=== PATIENT | female | born 1950 | race Caucasian/White ===

== ENCOUNTER 2017-11-11 17:21 | Emergency (ER) | payer BC, MEDICARE ==
[2017-11-11] MEDS ORDERED: HYDROCODONE/APAP 7.5/325MG TABLET PO ONE (17:25)
--- NOTE | 2017-11-11 17:30 | Emergency Department Record ---
History of Present Illness - General Chief complaint: Extremity Problem Stated complaint: WRIST INJURY Time Seen by Provider: 11/11/17 17:25 Source: Patient, Family Mode of Arrival: Ambulatory Limitations: No limitations - History of Present Illness Initial comments: 67 yo female presents after a fall in her living room. She was on a swivel chair and lost her balance landing on the left wrist. She has left radial side pain and swelling. No other injuries. She believes she broke that wrist in the distant past. No numbness or tingling. No weakness. She can move it but with some pain. MD Complaint: Extremity pain -: Minutes(s) (15) Location: Left History of Same: Yes -: Yes Arthralgia Radiation: Distal Quality: Aching Consistency: Constant Improves with: Immobilization Worsens with: Palpation, Weight bearing Associated Symptoms: Denies other symptoms - Related Data Home Medications Medication Instructions Recorded Confirmed Last Taken Ergocalciferol (Vitamin D2) 50,000 unit PO WEEKLY 11/11/17 11/11/17 1 Week Ago [Vitamin D2] ~11/04/17 Previous Rx's Medication Instructions Recorded Hydrocodone/Acetaminophen [[place] 1 each PO Q8H #15 tablet 11/11/17 5-325 Tablet] Allergies Allergy/AdvReac Type Severity Reaction Status Date / Time morphine Allergy BEHAVIORAL Verified 11/11/17 17:30 CHANGES Review of Systems Constitutional: Denies: Chills, Fever, Weakness Eyes: Denies: Eye discharge ENT: Denies: Congestion, Throat pain Respiratory: Denies: Cough Cardiovascular: Denies: Chest pain, Syncope Endocrine: Denies: Fatigue Gastrointestinal: Denies: Abdominal pain, Diarrhea, Nausea, Vomiting Genitourinary: Denies: Dysuria Musculoskeletal: Reports: As per HPI, Arthralgia, Joint swelling, Myalgia. Denies: Back pain, Neck pain Skin: Reports: Bruising. Denies: Change in color, Rash Neurological: Denies: Confusion, Headache, Numbness, Tingling, Weakness Psychiatric: Denies: Anxiety Hematological/Lymphatic: Denies: Easy bleeding, Easy bruising, Swollen glands Physical Exam - General General Appearance: Alert, Oriented x3, Cooperative, No acute distress Limitations: No limitations - Head Head exam: Atraumatic, Normocephalic, Normal inspection - Eye Eye exam: Normal appearance, PERRL. negative: Conjunctival injection, Periorbital swelling, Scleral icterus - ENT ENT exam: Normal exam Ear exam: Normal external inspection Nasal Exam: Normal inspection Mouth exam: Normal external inspection - Neck Neck exam: Normal inspection, Full ROM. negative: Tenderness - Respiratory Respiratory exam: Normal lung sounds bilaterally. negative: Respiratory distress - Cardiovascular Cardiovascular Exam: Regular rate, Normal rhythm, Normal heart sounds Peripheral Pulses: 2+: Radial (L) - Rectal Rectal exam: Deferred - exam: Deferred - Extremities Extremities exam: Joint swelling, Normal capillary refill, Tenderness. negative : Normal inspection, Full ROM Image of Hand: 1 - tenderness and swelling, skin intact, bruising, sensation intact - Back Back exam: Reports: Full ROM. Denies: CVA tenderness (R), CVA tenderness (L), Tenderness, Vertebral tenderness - Neurological Neurological exam: Alert, Normal gait, Oriented X3, Reflexes normal - Psychiatric Psychiatric exam: Normal affect, Normal mood - Skin Skin exam: Dry, Intact, Normal color, Warm Course - Reevaluation(s) Reevaluation #1: XR ordered of the left wrist 11/11/17 17:29 11/11/17 17:50 The XR was reviewed Possible distal tip of ulna fracture Questionable compression distal radius No displaced fracture or dislocation Degenerative changes noted 11/11/17 18:05 11/11/17 18:05 Disposition Disposition: Discharge Clinical Impression: Contusion of wrist, left Qualifiers: Encounter type: initial encounter Qualified Code(s): S60.212A - Contusion of left wrist, initial encounter Disposition: Home, Self-Care Condition: (1) Good Instructions: Wrist Sprain (ED) Additional Instructions: Use the splint for support and comfort Ice and elevate to minimize swelling Expect increased bruising over the next week Return if uncontrolled pain, any new concerns Call our doctor for close follow up in the next one week Prescriptions: Hydrocodone/Acetaminophen [[place] 5-325 Tablet] 1 each PO Q8H #15 tablet Forms: Patient Portal Access Time of Disposition: 17:53 Quality - Quality Measures Quality Measures: N/A - Blood Pressure Screening Does Patient Have Any of the Following: No Blood Pressure Classification: Pre-Hypertensive BP Reading Systolic Measurement: 139 Diastolic Measurement: 73 Screening for High Blood Pressure: < Pre-Hypertensive BP, F/U Documented > [ G8950] Pre-Hypertensive Follow-up Interventions: Referral to alternative/primary care provider.
--- NOTE | 2017-11-12 22:19 | RADIOLOGY REPORT ---
EXAM: WRIST, LEFT 3 VIEWS HISTORY: LEFT WRIST PAIN AFTER A FALL. TECHNIQUE: Four views left wrist. COMPARISON: None. ENCOUNTER: Initial. FINDINGS: There is a small benign-appearing area of sclerosis in the distal radius. I believe there is a tiny fracture at the tip of the ulnar styloid essentially undisplaced. It is difficult to confirm an associated radial fracture although a subtle impacted fracture of the distal radius is difficult to exclude. Soft tissue swelling about the wrist particularly laterally. IMPRESSION: 1. TINY UNDISPLACED FRACTURE TIP OF THE ULNAR STYLOID. 2. QUESTIONABLE SUBTLE IMPACTION FRACTURE DISTAL RADIUS. 3. SOME SOFT TISSUE SWELLING ABOUT THE WRIST PARTICULARLY ALONG THE RADIAL ASPECT. JOB NUMBER: [id number] [facility]
== END 2017-11-11 18:22 | disposition home or self-care (01) ==
LOC: ER 17:21
DX: S60.212A Contusion of left wrist, initial encounter (principal); W07.XXXA Fall from chair, initial encounter; Y92.009 Unspecified place in unspecified non-institutional (private) residence as the place of occurrence of the external cause
CPT/HCPCS: 99283; 99284

== ENCOUNTER 2018-08-27 22:13 | Emergency (ER) | payer BC, MEDICARE ==
[2018-08-27] MEDS ORDERED: HYDROCODONE/APAP 5/325MG TABLET PO ONE (22:19)
--- NOTE | 2018-08-27 22:32 | Emergency Department Record ---
History of Present Illness - General Chief Complaint: Ankle/Foot Injury Stated Complaint: FOOT INJURY Time Seen by Provider: 08/27/18 22:19 Source: Patient, Family Mode of Arrival: Wheelchair Limitations: No limitations - History of Present Illness Initial Comments: 68 yo female presents with a left foot injury. She dropped a 2 pound weight on her left foot from about 4 feet. She has proximal medial left foot pain. The skin is intact. No other injury. No history of left foot disease. MD Complaint: Foot injury Onset/Timin -: Hour(s) Injury: Foot: Left Type of Injury: Blunt Place: Home Severity scale (1-10): 10 Worsens With: Movement, Palpation, Weight bearing Context: Other Associated Symptoms: Unable to bear weight - Related Data Previous Rx's Medication Instructions Recorded Hydrocodone/Acetaminophen [[place] 1 each PO Q8H #15 tablet 11/11/17 5-325 Tablet] Ibuprofen [Motrin 600Mg] 600 mg PO Q8H #20 tablet 08/27/18 Allergies Allergy/AdvReac Type Severity Reaction Status Date / Time morphine Allergy BEHAVIORAL Verified 11/11/17 17:30 CHANGES Travel Screening - Travel/Exposure Within Last 30 Days Have you traveled within the last 30 days?: No - Travel Symptoms Symptom Screening: None Review of Systems Constitutional: Denies: Chills, Fever Eyes: Denies: Eye discharge, Photophobia, Vision change ENT: Denies: Congestion, Throat pain Respiratory: Denies: Cough Cardiovascular: Denies: Edema Gastrointestinal: Denies: Abdominal pain, Nausea, Vomiting Genitourinary: Denies: Dysuria Musculoskeletal: Reports: As per HPI, Arthralgia Skin: Denies: Bruising, Change in color, Rash Neurological: Denies: Numbness, Tingling, Weakness Psychiatric: Denies: Anxiety Hematological/Lymphatic: Denies: Blood Clots, Easy bleeding, Easy bruising Past Medical History - SOCIAL HISTORY Smoking Status: Never smoker - RESPIRATORY Hx Respiratory Disorders: No - CARDIOVASCULAR Hx Cardio Disorders: Yes Hx Irregular Heartbeat: Yes (ablation) - NEURO Hx Neuro Disorders: No - GI Hx GI Disorders: No - Hx Genitourinary Disorders: No - ENDOCRINE Hx Endocrine Disorders: No - MUSCULOSKELETAL Comment:: middle back - PSYCH Hx Psych Problems: No - HEMATOLOGY/ONCOLOGY Hx Hematology/Oncology Disorders: No Family Medical History Any Significant Family History?: Yes Hx Cancer: Brother/Sister Hx Diabetes: Father Hx Heart Disease: Father, Mother Hx HTN: Mother Physical Exam - General General Appearance: Alert, Oriented x3, Cooperative, No acute distress Limitations: No limitations - Head Head exam: Atraumatic, Normal inspection - Eye Eye exam: Normal appearance - ENT ENT exam: Normal exam Ear exam: Normal external inspection Nasal Exam: Normal inspection Mouth exam: Normal external inspection - Neck Neck exam: Normal inspection - Cardiovascular Peripheral Pulses: 2+: Dorsalis Pedis (L) - Extremities Extremities exam: Normal inspection, Full ROM, Normal capillary refill, Tenderness. negative: Calf tenderness, Joint swelling, Pedal edema Image of Feet: 1 - tenderness, normal inspection, intact skin, no deformity - Neurological Neurological exam: Alert, Oriented X3. negative: Motor sensory deficit - Psychiatric Psychiatric exam: Normal affect, Normal mood - Skin Skin exam: Dry, Intact, Normal color, Warm Course Vital Signs 08/27/18 22:17 Temperature 98.4 F Pulse Rate [ 59 L Pulse Ox Probe] Respiratory 20 Rate Blood Pressure 160/78 [Left Arm] Pulse Ox 98 - Reevaluation(s) Reevaluation #1: The XR was negative for acute fracture We discussed follow up in 5-7 days if pain continues She has pain with movement so she will be immobilized with DonJoy and crutches 08/27/18 22:50 Disposition Disposition: Discharge Clinical Impression: Contusion of foot, left Qualifiers: Encounter type: initial encounter Qualified Code(s): S90.32XA - Contusion of left foot, initial encounter Disposition: Home, Self-Care Condition: (1) Good Instructions: Foot Contusion (ED) Additional Instructions: Call your doctor for a recheck of the foot if it hurts more that one week If pain continues you may need additional tests to rule out a small fracture Ice and elevate the foot if the pain persists Use the boot and crutches for support and comfort as you heal Prescriptions: Ibuprofen [Motrin 600Mg] 600 mg PO Q8H #20 tablet Forms: Patient Portal Access Time of Disposition: 22:51 Quality - Quality Measures Quality Measures: N/A - Blood Pressure Screening Does Patient Have Any of the Following: No Blood Pressure Classification: Hypertensive Reading Systolic Measurement: 160 Diastolic Measurement: 78 Screening for High Blood Pressure: < Pre-Hypertensive BP, F/U Documented > [ G8950] Pre-Hypertensive Follow-up Interventions: Referral to alternative/primary care provider.
[2018-08-27] MEDS ORDERED: IBUPROFEN 600 MG TABLET PO ONE (22:50)
--- NOTE | 2018-08-29 07:12 | RADIOLOGY REPORT ---
EXAM: LEFT FOOT, THREE VIEWS HISTORY: TRAUMA. TECHNIQUE: Three views of the left foot were obtained. FINDINGS: The bones are osteopenic. No fracture or malalignment is seen. Mild to moderate first MTP joint degenerative change. Mild soft tissue swelling. IMPRESSION: NO ACUTE PROCESS. JOB NUMBER: [id number] [facility]
== END 2018-08-27 23:22 | disposition home or self-care (01) ==
LOC: ER 22:13
DX: S90.32XA Contusion of left foot, initial encounter (principal); W21.89XA Striking against or struck by other sports equipment, initial encounter; Y93.B3 Activity, free weights
CPT/HCPCS: 99283

== ENCOUNTER 2018-10-13 06:20 | Day surgery (SDC) | payer BC, MEDICARE ==
[2018-10-13] MEDS ORDERED: PROPOFOL 10 MG/ML VIAL IV ONE (06:21)
[2018-10-13] MEDS ORDERED: LIDOCAINE 2% MDV (20MG/ML) 20ML VIAL IV ONE (06:21)
--- NOTE | 2018-10-18 11:10 | Operative Note ---
DATE OF SURGERY: 10/13/2018 SURGEON: Olivia Simmons MD OPERATION: COLONOSCOPY. INDICATIONS: This is a 68-year-old female with family history of colon cancer who presented for screening colonoscopy. Last colonoscopy was about 5 years ago. POSTOPERATIVE DIAGNOSES: 1. Two 2-3 mm sessile rectal polyps that were removed by cold biopsy forceps. 2. Grade 1 internal hemorrhoids. ANESTHESIA: Sedation is per Anesthesia. Pulse oximetry was monitored throughout the procedure to maintain O2 saturation of 90% or greater. Supplemental oxygen was administered via nasal cannula. Cardiac and vital signs were monitored throughout the duration of the procedure, and they were stable. The procedure of colonoscopy and risks and alternatives of the procedure, including the risk of bleeding and perforation, among others, were explained to the patient who voiced understanding and agreed to have the procedure done. Physical examination was performed, and the patient was found stable for sedation. PROCEDURE: The patient was placed in the left lateral position. Sedation was initiated. A digital rectal exam was performed and showed some mild external hemorrhoids with no palpable rectal masses. An Olympus PCF-180AL colonoscope was then inserted into the rectum under direct visualization. It was advanced to the cecum without difficulty. The ileocecal valve and appendiceal orifice were identified and photographed. The colonic mucosa was carefully examined upon introduction of the colonoscope. There were no lesions noted. The colonoscope was then withdrawn while carefully examining the colonic mucosal surfaces. No lesions were noted. In the rectum, two 2-3 mm sessile polyps were noted and they were removed by cold biopsy forceps. The colonoscope was then retroflexed and no other lesions were noted. The colonoscope was then withdrawn and the procedure was terminated. The patient tolerated the procedure well without any immediate complications. The patient remained with stable vital signs and was transferred to the recovery room. RECOMMENDATIONS: 1. The patient should be on a high-fiber diet. 2. The patient is to have a repeat colonoscopy for surveillance in 3 or 5 years depending on the histology of the polyps. Thank you for allowing me to participate in the care of your patient. CC: Marta QUIÑONEZ
== END 2018-10-13 08:36 | disposition home or self-care (01) ==
LOC: HOP 06:20
PROVIDERS: ATTEND Internal Medicine Gastroenterology
DX: Z12.11 Encounter for screening for malignant neoplasm of colon (principal); Z80.0 Family history of malignant neoplasm of digestive organs; K62.1 Rectal polyp